=== PATIENT | female | born 1995 | race Caucasian/White ===

== ENCOUNTER 2017-04-15 10:40 | Emergency (ER) | payer BC ==
--- NOTE | 2017-04-15 11:08 | EDM.PDOC ---
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 Patient has her first OB check tomorrow. Yesterday the patient developed some vaginal spotting this has become progressively worse she is gone through 4 pads in the last 7 hours. She has also noticed some frequency with urination or she has to void about every hour she's not had any burning or dribbling with this. She has passed some clots. She has not had significant pain or cramping with this. Lower Pelvic Pain Score (Numeric/FACES): 4 ED ROS GENERAL - Review of Systems Review Of Systems: See Below Constitutional: Reports: No Symptoms HEENT: Reports: No Symptoms Respiratory: Reports: No Symptoms Cardiovascular: Reports: No Symptoms GI/Abdominal: Reports: Other (Lower abdominal pelvic pain). Denies: Constipation, Diarrhea, Nausea, Vomiting : Reports: Frequency. Denies: Dysuria, Flank Pain, Urgency Musculoskeletal: Reports: No Symptoms Skin: Reports: No Symptoms Neurological: Reports: No Symptoms ED EXAM - Physical Exam Exam: See Below Exam Limited By: No Limitations General Appearance: Alert, No Apparent Distress Head: Atraumatic, Normocephalic Neck: Normal Inspection, Supple, Non-Tender, Full Range of Motion Respiratory/Chest: No Respiratory Distress, Lungs Clear, Normal Breath Sounds Cardiovascular: Regular Rate, Rhythm, No Edema, No Murmur GI/Abdominal Exam: Normal Bowel Sounds, Soft, No Organomegaly, No Distention, No Abnormal Bruit, No Mass, Other ( heart tones not audible she has some lower abdominal discomfort seems to be slightly worse on the right compared to the left) (Female) Exam: Normal Bimanual Exam, Other (She has a small amount of blood noted in the vaginal vault no tissue or clots noted exam otherwise normal). No : Adnexal Mass (L), Adnexal Mass (R), Cervical Lesions, Cervix Motion Tenderness Heart Tones: Not [place] Back Exam: Normal Inspection. No: CVA Tenderness (L), CVA Tenderness (R) Extremities: Normal Inspection, No Pedal Edema Neurological: Alert, Oriented, CN II-XII Intact, Normal Reflexes, No Motor/ Sensory Deficits Psychiatric: Normal Affect, Normal Mood Skin Exam: Warm, Dry, Intact Lymphatic: No Adenopathy Course - Vital Signs Last Recorded V/S: Last Vital Signs Temp 36.4 C 04/15/17 11:03 Pulse 86 04/15/17 11:03 Resp 20 04/15/17 11:03 BP 136/81 04/15/17 11:03 Pulse Ox 99 04/15/17 11:03 - Orders/Labs/Meds Orders: Active Orders 24 hr Category Date Time Status Pelvic Exam, Set Up [RC] ASDIRECTED Care 04/15/17 13:47 Active OB Transvaginal [US] Stat Exams 04/15/17 11:29 Taken PATIENT RETYPE [BBK] Stat Lab 04/15/17 11:30 Results RH IMMUNE GLOBULIN [BBK] Stat Lab 04/15/17 11:30 Results RHIG WORKUP, 1ST TRIMESTER [BBK] Stat Lab 04/15/17 11:30 Results TYPE AND SCREEN [BBK] Stat Lab 04/15/17 11:30 Results Labs: Laboratory Tests 04/15/17 04/15/17 04/15/17 Range/Units 11:30 11:30 11:30 WBC 8.15 (3.98-10.04) K/mm3 RBC 5.32 H (3.98-5.22) M/mm3 Hgb 16.3 H (11.2-15.7) gm/L Hct 45.4 H (34.1-44.9) % MCV 85.3 (79.4-94.8) fl MCH 30.6 (25.6-32.2) pg MCHC 35.9 H (32.2-35.5) g/dl RDW Std Deviation 38.5 (36.4-46.3) fL Plt Count 274 (182-369) K/mm3 MPV 9.3 L (9.4-12.3) fl Neutrophils % (Manual) 72 H (40-60) % Band Neutrophils % 0 (0-10) % Lymphocytes % (Manual) 19 L (20-40) % Atypical Lymphs % 0 % Monocytes % (Manual) 8 (2-10) % Eosinophils % (Manual) 1 (0.7-5.8) % Basophils % (Manual) 0 L (0.1-1.2) Platelet Estimate Adequate RBC Morph Comment Normal PT 10.3 (8.0-13.0) SECONDS INR 0.96 APTT 29 (22-36) SECONDS Sodium 138 (136-145) mEq/L Potassium 3.2 L (3.5-5.1) mEq/L Chloride 100 (98-107) mEq/L Carbon Dioxide 26 (21-32) mEq/L Anion Gap 15.2 H (5-15) BUN 4 L (7-18) mg/dL Creatinine 0.7 (0.55-1.02) mg/dL Est Cr Clr Drug Dosing 111.51 mL/min Estimated GFR (MDRD) > 60 (>60) mL/min BUN/Creatinine Ratio 5.7 L (14-18) Glucose 91 (74-106) mg/dL Calcium 9.5 (8.5-10.1) mg/dL Total Bilirubin 0.8 (0.2-1.0) mg/dL AST 19 (15-37) U/L ALT 35 (14-59) U/L Alkaline Phosphatase 61 (46-116) U/L Total Protein 7.6 (6.4-8.2) g/dl Albumin 3.9 (3.4-5.0) g/dl Globulin 3.7 gm/dL Albumin/Globulin Ratio 1.1 (1-2) HCG, Quant 01619.0 mIU/mL Urine Color (Yellow) Urine Appearance (Clear) Urine pH (5.0-8.0) Ur Specific [place] (1.005-1.030) Urine Protein (Negative) Urine Glucose (UA) (Negative) Urine Ketones (Negative) Urine Occult Blood (Negative) Urine Nitrite (Negative) Urine Bilirubin (Negative) Urine Urobilinogen (0.2-1.0) Ur Leukocyte Esterase (Negative) Urine RBC (0-5) /hpf Urine WBC (0-5) /hpf Ur Epithelial Cells (0-5) /hpf Urine Bacteria (FEW) /hpf Urine Mucus (FEW) /hpf Blood Type Gel Antibody Screen Rhogam Indicated 04/15/17 04/15/17 Range/Units 11:30 12:25 WBC (3.98-10.04) K/mm3 RBC (3.98-5.22) M/mm3 Hgb (11.2-15.7) gm/L Hct (34.1-44.9) % MCV (79.4-94.8) fl MCH (25.6-32.2) pg MCHC (32.2-35.5) g/dl RDW Std Deviation (36.4-46.3) fL Plt Count (182-369) K/mm3 MPV (9.4-12.3) fl Neutrophils % (Manual) (40-60) % Band Neutrophils % (0-10) % Lymphocytes % (Manual) (20-40) % Atypical Lymphs % % Monocytes % (Manual) (2-10) % Eosinophils % (Manual) (0.7-5.8) % Basophils % (Manual) (0.1-1.2) Platelet Estimate RBC Morph Comment PT (8.0-13.0) SECONDS INR APTT (22-36) SECONDS Sodium (136-145) mEq/L Potassium (3.5-5.1) mEq/L Chloride (98-107) mEq/L Carbon Dioxide (21-32) mEq/L Anion Gap (5-15) BUN (7-18) mg/dL Creatinine (0.55-1.02) mg/dL Est Cr Clr Drug Dosing mL/min Estimated GFR (MDRD) (>60) mL/min BUN/Creatinine Ratio (14-18) Glucose (74-106) mg/dL Calcium (8.5-10.1) mg/dL Total Bilirubin (0.2-1.0) mg/dL AST (15-37) U/L ALT (14-59) U/L Alkaline Phosphatase (46-116) U/L Total Protein (6.4-8.2) g/dl Albumin (3.4-5.0) g/dl Globulin gm/dL Albumin/Globulin Ratio (1-2) HCG, Quant mIU/mL Urine Color Light yellow (Yellow) Urine Appearance Clear (Clear) Urine pH 7.0 (5.0-8.0) Ur Specific [place] 1.010 (1.005-1.030) Urine Protein Negative (Negative) Urine Glucose (UA) Negative (Negative) Urine Ketones Negative (Negative) Urine Occult Blood Negative (Negative) Urine Nitrite Negative (Negative) Urine Bilirubin Negative (Negative) Urine Urobilinogen 0.2 (0.2-1.0) Ur Leukocyte Esterase Negative (Negative) Urine RBC Not seen (0-5) /hpf Urine WBC Not seen (0-5) /hpf Ur Epithelial Cells Not seen (0-5) /hpf Urine Bacteria Not seen (FEW) /hpf Urine Mucus Not seen (FEW) /hpf Blood Type A NEGATIVE Gel Antibody Screen Negative Rhogam Indicated Yes Meds: Medications Discontinued Medications Generic Name Dose Route Start Last Admin Trade Name Fremegan PRN Reason Stop Dose Admin Lactated Ringer's 1,000 mls @ 999 mls/hr 04/15/17 11:28 04/15/17 11:43 Ringers, Lactated IV 04/15/17 12:28 999 mls/hr .BOLUS ONE Administration - Re-Assessments/Exams Free Text/Narrative Re-Assessment/Exam: 04/15/17 14:54 Quantitative hCG is 12,000 urinalysis was not suggestive of infectious process. Ultrasound was a obtained which really showed no intrauterine given her that and her 12,000 quantitative hCG this probably represents a miscarriage however cannot exclude other possibilities in this needs to be followed until the hCG is normal. She should probably have an repeat ultrasound done in a couple of weeks. Patient is Rh- and will receive RhoGAM. Case reviewed with Dr. Ocampo. 04/15/17 14:58 Patient is doing okay at this point she does not feel she needs any pain medication or anything for nausea. 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 Follow-up in the clinic tomorrow as previously scheduled. Continue vitamins. - My Orders Last 24 Hours: My Active Orders 04/15/17 11:29 OB Transvaginal [US] Stat 04/15/17 11:30 PATIENT RETYPE [BBK] Stat RH IMMUNE GLOBULIN [BBK] Stat RHIG WORKUP, 1ST TRIMESTER [BBK] Stat TYPE AND SCREEN [BBK] Stat 04/15/17 13:47 Pelvic Exam, Set Up [RC] ASDIRECTED - Assessment/Plan Last 24 Hours: My Active Orders 04/15/17 11:29 OB Transvaginal [US] Stat 04/15/17 11:30 PATIENT RETYPE [BBK] Stat RH IMMUNE GLOBULIN [BBK] Stat RHIG WORKUP, 1ST TRIMESTER [BBK] Stat TYPE AND SCREEN [BBK] Stat 04/15/17 13:47 Pelvic Exam, Set Up [RC] ASDIRECTED
[2017-04-15] MEDS ORDERED: Lactated Ringers 1,000 ML IV ONE (11:28)
--- NOTE | 2017-04-16 08:10 | US ---
First trimester obstetrical ultrasound: Multiple real-time images were obtained transvaginally. No intrauterine gestational sac is seen. Endometrial thickness is increased 2.4 cm and appears inhomogeneous. Small nabothian cyst noted within the cervix. No adnexal abnormalities are appreciated. Impression: 1. No intrauterine gestational sac or adnexal abnormalities. 2. Inhomogeneous and thickened endometrium at 2.4 cm which may represent retained products of conception/blood from miscarriage. 3. Follow-up study could be considered to see if findings persist. Follow-up could be obtained between 1 and 2 weeks if patient's clinical status remains stable. Diagnostic code #3 I agree with preliminary report from [facility], finalized at 04/15/17, 2:16 PM Central Time
== END 2017-04-15 15:27 | disposition home or self-care (01) ==
LOC: SUPCPDRO 10:40 → JD.ED 10:40
DX: O03.4 Incomplete spontaneous abortion without complication (principal)
CPT/HCPCS: 36415; 76817; 80053; 81001; 84702; 85025; 85610; 85730; 86850; 86900; 86901; 96360; 99284; J2790; J7120; 99283

== ENCOUNTER 2018-06-07 10:37 | Emergency (ER) | payer BC ==
--- NOTE | 2018-06-07 11:47 | EDM.PDOC ---
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 The patient states that she notices pain earlier this morning. The patient states that she is roughly 6 weeks as per her last menstrual period roughly April 27 the . She notes that her and her are trying to become . She went to the clinic to find out on Sunday and they stated that her hCG level at that time was 5 and her progesterone level was at 7. The patient states that the pain is worst when she stands on her left leg. And is made better by relaxing and not having any pressure on her left leg. She would rate her pain at a 6-7 out of 10 when she is standing. She states this pain is a cramping type pain She does note that she has some mild urinary frequency and some slight dysuria, but does not have a history of any UTIs at this time. 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 She notes she has not had any bowel issues such as IBS, diverticulitis or other. She does note that she still has her appendix as well. She has not had any nausea/vomiting, but did have one episode of diarrhea this morning. She denies any vaginal bleeding at this time. Left Lower Abdomen Pain Score (Numeric/FACES): 5 - Related Data Allergies Allergy/AdvReac Type Severity Reaction Status Date / Time No Known Allergies Allergy Verified 06/07/18 10:47 Home Meds: Home Meds Vaginal Suppository Applicator 1 supp VAG DAILY 06/07/18 [History] Past Medical History - Past Health History Medical/Surgical History: Denies Medical/Surgical History - Past Surgical History Female Surgical History: Reports: Other (See Below) Other Female Surgeries/Procedures: vaginal delivery x 1 Social & Family History - Tobacco Use Smoking Status *Q: Current Every Day Smoker Years of Tobacco use: 6 Packs/Tins Daily: 0.5 - Caffeine Use Caffeine Use: Reports: Coffee - Recreational Drug Use Recreational Drug Use: No ED ROS GENERAL - Review of Systems Review Of Systems: See Below Constitutional: Denies: Fever, Chills HEENT: Reports: No Symptoms Respiratory: Reports: No Symptoms Cardiovascular: Reports: No Symptoms Endocrine: Reports: No Symptoms GI/Abdominal: Reports: Abdominal Pain (LLQ and suprapubic) : Reports: Dysuria, Frequency. Denies: Discharge Musculoskeletal: Reports: No Symptoms Skin: Reports: No Symptoms Neurological: Reports: No Symptoms Psychiatric: Reports: No Symptoms Hematologic/Lymphatic: Reports: No Symptoms Immunologic: Reports: No Symptoms ED EXAM, GI/ABD - Physical Exam Exam: See Below Exam Limited By: No Limitations General Appearance: Alert, WD/WN, No Apparent Distress Eyes: Bilateral: Normal Appearance Ears: Normal External Exam Nose: Normal Inspection Throat/Mouth: Normal Inspection Head: Atraumatic, Normocephalic Neck: Normal Inspection Respiratory/Chest: No Respiratory Distress, Lungs Clear, Normal Breath Sounds, No Accessory Muscle Use, Chest Non-Tender Cardiovascular: Normal Peripheral Pulses, Regular Rate, Rhythm, No Murmur GI/Abdominal Exam: Normal Bowel Sounds, Soft, No Distention, No Mass, Tender ( LLQ and suprapubic with deep palpation) Back Exam: Normal Inspection, Full Range of Motion Extremities: Normal Inspection, Normal Capillary Refill Neurological: Alert, Oriented, Normal Cognition, No Motor/Sensory Deficits Psychiatric: Normal Affect, Normal Mood Skin Exam: Warm, Dry, Intact, Normal Color, No Rash Course - Vital Signs Last Recorded V/S: Last Vital Signs Temp 98.2 F 06/07/18 10:44 Pulse 82 06/07/18 10:44 Resp 16 06/07/18 10:44 BP 122/77 06/07/18 10:44 Pulse Ox 100 06/07/18 10:44 - Orders/Labs/Meds Orders: Active Orders 24 hr Category Date Time Status RHOGAM, [RHIG WORKUP, ] [BBK] Stat Lab 06/07/18 13:09 Ordered TYPE AND SCREEN [BBK] Stat Lab 06/07/18 11:09 Ordered Labs: Laboratory Tests 06/07/18 06/07/18 06/07/18 Range/Units 11:29 11:29 11:29 WBC 6.70 (3.98-10.04) K/mm3 RBC 5.07 (3.98-5.22) M/mm3 Hgb 15.6 (11.2-15.7) gm/L Hct 44.1 (34.1-44.9) % MCV 87.0 (79.4-94.8) fl MCH 30.8 (25.6-32.2) pg MCHC 35.4 (32.2-35.5) g/dl RDW Std Deviation 39.0 (36.4-46.3) fL Plt Count 305 (182-369) K/mm3 MPV 9.4 (9.4-12.3) fl Neut % (Auto) 53.1 (34.0-71.1) % Lymph % (Auto) 39.6 (19.3-51.7) % [place] % (Auto) 6.7 (4.7-12.5) % Eos % (Auto) 0.6 L (0.7-5.8) Baso % (Auto) 0.0 L (0.1-1.2) % Neut # (Auto) 3.56 (1.56-6.13) K/mm3 Lymph # (Auto) 2.65 (1.18-3.74) K/mm3 [place] # (Auto) 0.45 H (0.24-0.36) K/mm3 Eos # (Auto) 0.04 (0.04-0.36) K/mm3 Baso # (Auto) 0.00 L (0.01-0.08) K/mm3 Sodium 139 (136-145) mEq/L Potassium 3.8 (3.5-5.1) mEq/L Chloride 103 (98-107) mEq/L Carbon Dioxide 25 (21-32) mEq/L Anion Gap 14.8 (5-15) BUN 6 L (7-18) mg/dL Creatinine 0.7 (0.55-1.02) mg/dL Est Cr Clr Drug Dosing 110.55 mL/min Estimated GFR (MDRD) > 60 (>60) mL/min BUN/Creatinine Ratio 8.6 L (14-18) Glucose 87 (74-106) mg/dL Calcium 9.6 (8.5-10.1) mg/dL Total Bilirubin 0.6 (0.2-1.0) mg/dL AST 13 L (15-37) U/L ALT 29 (14-59) U/L Alkaline Phosphatase 45 L (46-116) U/L C-Reactive Protein < 0.2 (<1.0) mg/dL Total Protein 7.3 (6.4-8.2) g/dl Albumin 4.0 (3.4-5.0) g/dl Globulin 3.3 gm/dL Albumin/Globulin Ratio 1.2 (1-2) HCG, Quant < 1.0 mIU/mL Urine Color (Yellow) Urine Appearance (Clear) Urine pH (5.0-8.0) Ur Specific [place] (1.005-1.030) Urine Protein (Negative) Urine Glucose (UA) (Negative) Urine Ketones (Negative) Urine Occult Blood (Negative) Urine Nitrite (Negative) Urine Bilirubin (Negative) Urine Urobilinogen (0.2-1.0) Ur Leukocyte Esterase (Negative) Urine RBC (0-5) /hpf Urine WBC (0-5) /hpf Ur Epithelial Cells (0-5) /hpf Urine Bacteria (FEW) /hpf Urine Mucus (FEW) /hpf Blood Type A NEGATIVE 06/07/18 Range/Units 12:30 WBC (3.98-10.04) K/mm3 RBC (3.98-5.22) M/mm3 Hgb (11.2-15.7) gm/L Hct (34.1-44.9) % MCV (79.4-94.8) fl MCH (25.6-32.2) pg MCHC (32.2-35.5) g/dl RDW Std Deviation (36.4-46.3) fL Plt Count (182-369) K/mm3 MPV (9.4-12.3) fl Neut % (Auto) (34.0-71.1) % Lymph % (Auto) (19.3-51.7) % [place] % (Auto) (4.7-12.5) % Eos % (Auto) (0.7-5.8) Baso % (Auto) (0.1-1.2) % Neut # (Auto) (1.56-6.13) K/mm3 Lymph # (Auto) (1.18-3.74) K/mm3 [place] # (Auto) (0.24-0.36) K/mm3 Eos # (Auto) (0.04-0.36) K/mm3 Baso # (Auto) (0.01-0.08) K/mm3 Sodium (136-145) mEq/L Potassium (3.5-5.1) mEq/L Chloride (98-107) mEq/L Carbon Dioxide (21-32) mEq/L Anion Gap (5-15) BUN (7-18) mg/dL Creatinine (0.55-1.02) mg/dL Est Cr Clr Drug Dosing mL/min Estimated GFR (MDRD) (>60) mL/min BUN/Creatinine Ratio (14-18) Glucose (74-106) mg/dL Calcium (8.5-10.1) mg/dL Total Bilirubin (0.2-1.0) mg/dL AST (15-37) U/L ALT (14-59) U/L Alkaline Phosphatase (46-116) U/L C-Reactive Protein (<1.0) mg/dL Total Protein (6.4-8.2) g/dl Albumin (3.4-5.0) g/dl Globulin gm/dL Albumin/Globulin Ratio (1-2) HCG, Quant mIU/mL Urine Color Yellow (Yellow) Urine Appearance Clear (Clear) Urine pH 7.0 (5.0-8.0) Ur Specific [place] 1.010 (1.005-1.030) Urine Protein Negative (Negative) Urine Glucose (UA) Negative (Negative) Urine Ketones Negative (Negative) Urine Occult Blood Negative (Negative) Urine Nitrite Negative (Negative) Urine Bilirubin Negative (Negative) Urine Urobilinogen 0.2 (0.2-1.0) Ur Leukocyte Esterase Trace H (Negative) Urine RBC Not seen (0-5) /hpf Urine WBC 0-5 (0-5) /hpf Ur Epithelial Cells 0-5 (0-5) /hpf Urine Bacteria Rare (FEW) /hpf Urine Mucus Not seen (FEW) /hpf Blood Type - Re-Assessments/Exams Free Text/Narrative Re-Assessment/Exam: 06/07/18 11:15 Patient presents to the ED for the evaluation of left lower quadrant pain. I have ordered a UA, quantitative hCG, CBC, CMP, CRP, type and screen, and OB transvaginal ultrasound for further evaluation of her symptoms. She is not having any bleeding so is less likely that she is having an at The . But with her history of miscarriages I want to make sure that the fetus is okay , she states that her hCG level was deemed critically low on Sunday for the progression of her . 06/07/18 13:01 Patient's ultrasound is done, and CBC and CMP are done at this time. Her ultrasound does not demonstrate any sign of an intrauterine gestational sac, which suggests that maybe she had a false positive on her urine test. Her hCG Quant was less than one today. CBC and CMP are within normal limits, she is found to be A- at this time, she will need to have RhoGAM administered. 06/07/18 13:05 Her UA is negative for any sort of bacterial infection at this time as well. We 'll recommend that she take some laxatives and do a bowel clean out at home to see if this doesn't provide her relief. Departure - Departure Time of Disposition: 13:11 Disposition: Home, Self-Care 01 Condition: Fair Clinical Impression: LLQ abdominal pain - Discharge Information *PRESCRIPTION DRUG MONITORING PROGRAM REVIEWED*: No *COPY OF PRESCRIPTION DRUG MONITORING REPORT IN PATIENT MICHAEL: No Instructions: Abdominal Pain, Adult, [id number] Referrals: PCP,None [Primary Care Provider] - Forms: ED Department Discharge Additional Instructions: You have been evaluated in the ED today for your left lower quadrant pain. Your workup in the ER today included a quantitative hCG, urinalysis, and routine lab work. Your routine lab work was within normal limits, you are not suffering from appendicitis, you do not have a UTI, and your hCG level was less than one at today's visit. It is likely that you had a false positive test. Your blood type is A-, you have been given a dose of Rhogam in the ER. Your pain may likely be due to increased stool in your colon, due to slight constipation, please take some MiraLAX, and increase your oral fluid intake and stay well-hydrated. Please return to the ED if your symptoms should change or worsen. - My Orders Last 24 Hours: My Active Orders 06/07/18 11:09 TYPE AND SCREEN [BBK] Stat 06/07/18 13:09 RHOGAM, [RHIG WORKUP, ] [BBK] Stat - Assessment/Plan Last 24 Hours: My Active Orders 06/07/18 11:09 TYPE AND SCREEN [BBK] Stat 06/07/18 13:09 RHOGAM, [RHIG WORKUP, ] [BBK] Stat
--- NOTE | 2018-06-07 12:44 | US ---
First trimester obstetrical ultrasound: Multiple real-time images were obtained. Comparison: Previous first trimester obstetrical ultrasound of 04/15/17. No intrauterine gestational sac is seen. Endometrial thickness is 1.7 cm. Incidental nabothian cyst is present. Follicles are seen within the ovaries. No adnexal abnormalities are seen. Impression: 1. No intrauterine gestational sac or adnexal abnormalities are seen. 2. Endometrial thickness is 1.7 cm which is within normal limits. 3. Incidental nabothian cyst. Diagnostic code #2
== END 2018-06-07 14:07 | disposition home or self-care (01) ==
LOC: JD.ED 10:37
DX: R10.32 Left lower quadrant pain (principal); F17.210 Nicotine dependence, cigarettes, uncomplicated
CPT/HCPCS: 36415; 76817; 80053; 81001; 84702; 85025; 86140; 86850; 86900; 86901; 99284; J2790; 36430

== ENCOUNTER 2019-08-05 06:51 | Inpatient (IN) | payer BC ==
[2019-08-05] MEDS ORDERED: Sodium Chloride 0.9% 10 ML Syringe FLUSH PRN (07:42)
[2019-08-05] MEDS ORDERED: Oxytocin/Lactated Ringers 10 UNIT/1,000 ML BAG IV SCH ×2 (07:45)
[2019-08-05] MEDS: Nalbuphine 10 MG/ML Syringe IVPUSH PRN ×4 (08:15→17:37)
--- NOTE | 2019-08-05 08:21 | US ---
Addendum: Body of the report states "normal heart rate is seen" which is a voice recognition error and should read as follows: No heart activity is seen. --- Addendum1 above dictated on [08/05/2019 08:43] by [Suyapa Ambrose Hilton J.] --- --- Addendum1 above signed on [08/05/2019 08:45] by [Suyapa Ambrose Hilton J.] --- --- Original report below dictated on [08/05/2019 08:17] by [Suyapa Ambrose Hilton J.] --- --- Original report below signed on [08/05/2019 08:19] by [Suyapa Ambrose Hilton J.] --- Limited obstetrical ultrasound: Multiple real-time images were obtained transabdominally. Comparison: Prior obstetrical ultrasound of 08/04/19. Large heterogeneous area is seen in a retroplacental location believed to represent hematoma from placental abruption. presentation: Cephalic Placenta: Posterior Amniotic fluid: SUKUMAR 7.1 cm Heart rate: Normal heart rate is seen. Impression: 1. Large retroplacental hematoma from abruption. This is an interval change from previous exam performed one day earlier. 2. No heart activity is seen compatible with unfortunate demise. Diagnostic code #5 This report was dictated in MDT --- Addendum1 signed ---
[2019-08-05] MEDS: Lactated Ringers 1,000 ML IV SCH ×2 (09:30→10:35)
[2019-08-05] MEDS ORDERED: fentaNYL 100 MCG/2 ML SDV EPIDUR PRN (10:14)
[2019-08-05] MEDS ORDERED: diphenhydrAMINE 50 MG/ML SDV IVPUSH PRN (10:14)
[2019-08-05] MEDS ORDERED: Bupivacaine/fentaNYL/NS 100 ML Bag EPIDUR PRN (10:14)
[2019-08-05] MEDS ORDERED: ePHEDrine 50 MG/ML SDV IVPUSH PRN (10:14)
--- NOTE | 2019-08-05 11:05 | PCM.LDHP ---
L&D History of Present Illness - General Date of Service: 08/05/19 Admit Problem/Dx: Patient Status Order with Admit Dx/Problem 08/05/19 07:01 Patient Status [ADT] Routine Admission Diagnosis/Problem Admission Diagnosis/Problem 08/05/19 10:47 24-year-old 5 para 1031 at 36-0/7 weeks gestation with an CHANA of 09/01/2019 was admitted to labor and delivery with a history of rapid onset of vaginal bleeding, contractions confirmed with ultrasound to have a nonviable secondary to a suspected abruption placenta. Source of Information: Patient History Limitations: Reports: No Limitations - History of Present Illness Introduction:: 24-year-old 5 para 1031 at 36-0/7 weeks gestation with an CHANA of 09/01/2019 was admitted to labor and delivery with a history of rapid onset of vaginal bleeding, contractions confirmed with ultrasound to have a nonviable secondary to a suspected abruption placenta.Patient reports this a.m. at approximately 6 to 6:30 she awoke with cramping and bleeding. She soaked a pad with bright red blood. She was cramping severely and called labor and delivery and was asked to come into labor and delivery. At approximately 0700 hrs. I was called to labor and delivery as nursing staff was unable to obtain heart tones. Bedside ultrasound was done and showed no evidence of active cardiac activity. Confirmatory ultrasound was obtained. A large heterogeneous area is seen in the retroplacental location believed to represent hematoma from placental abruption. Patient is in moderate to severe pain radiating it on a 710/10. Bleeding is moderate and patient soaked possibly 1 more pad since arriving in labor and delivery. Patient had been seen over the course of the last 2 weeks with borderline elevated blood pressures. These started approximately 35 weeks' gestation. Patient was monitored in labor and delivery and blood pressures normalized. She had preeclampsia labs that were obtained and were essentially normal. Patient w as followed closely and reevaluated on 07/31/2019 in clinic at which time her blood pressures were 152/103 and 150/99. She is followed up on 08/04/2019 at which time her blood pressures and 40/82. Biophysical profile showed a score of 8/8 with normal amniotic fluid, breathing movements, tone and activity. NST was not performed. She had no symptoms or signs of preeclampsia at that time. Because it appeared that patient was developing gestational hypertension decision was made to proceed with induction to be done at 37 weeks and 0 days. This was scheduled. 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 Patient had normal menarche at age 10. Cycles every 28 days. She was using control time of conception. Her due date is based upon an early ultrasound done at 6-1/7 weeks gestational age. It was confirmed by multiple ultrasounds done during the course of the . Patient has had 3 miscarriages in August 2018, June 2018 in February 2018 all between 6 and 9 weeks gestation. She's had one delivery on 10/06/2011 at 39 weeks gestational age after 40 hours of labor. She delivered an 8 lbs. 1 oz. female infant via . She had epidural at that delivery. Child's name is Oksana. She delivered at [facility]. course: Patient was initially seen very early in the first trimester. Ultrasound as described above. Personal visit was at 10-3/7 weeks gestational age. Patient was seen on a regular basis. Her weight gain was from 183 pounds up to 228 pounds for approximately a 45 pound weight gain. Vital signs were stable until approximately 35 weeks' gestation. Fundal height growth was appropriate throughout the . Patient isn't every day smoker. Her group B strep screen is negative. She was diagnosed with gestational diabetes. She is contr olled reasonably well with glyburide 5 mg one half tablet each morning and 1 tablet at bedtime. Her prequel noninvasive screen was negative. Patient is Rh- and had RhoGAM on 05/28/2019. She received her Tdap immunization on 07/01/2019. Laboratory testing in shows blood to the A- with a negative MRI screen. First hemoglobin is 14.4 g/dL and platelets are 327,000. She is rubella immune. RPR is nonreactive. Urine culture was negative at first visit. Hepatitis B surface antigen and HIV assays were both negative. Chlamydia and gonorrhea were assays were both negative. Her second trimester labs showed hemoglobin 12.8 g/dL and platelets are 347,000. One-hour glucose tolerance test is 172. Three-hour glucose tolerance test was abnormal and patient was given diagnosis of gestational diabetes. She initially was evaluated with dietary control only but glyburide was started because of mildly elevated fasting blood sugars. Blood sugars were reasonably well controlled with glyburide therapy. Hemoglobin on 07/30/2019 was 13.3 and platelets are 306,000. At that time patient had essentially normal preeclampsia labs. B strep screen was negative. Allergies: Negative Medications: 1. Glyburide 5 mg tablets one half tablet each morning and 1 tablet at bedtime daily 2. vitamins daily 3. Ferrous sulfate 1 tablet orally daily. Past medical history: 1. Miscarriage 3 first trimester 2. 2011 3. Gestational hypertension 4. Gestational diabetes Past surgical history: Unremarkable Family history: Mother is alive and well. Father is secondary to liver failure, was an alcoholic and diabetic. Brother is alive but suffers from obesity. Sisters alive but has a history of drug use. Maternal grandmother is alive but with factor V Leiden mutation. Maternal grandfather is alive but is diabetic. Paternal grandmother is alive and well. Paternal grandfather is alive but diabetic. There is no family history of cancer, anesthesia related issues or -related issues. There are no bleeding or blood clotting disorders other than the maternal grandmother's factor V history. She does have a maternal aunt with Nichole syndrome. Social history: Patient is . She is not employed. She lives in [facility] with her Delfin. She is a high school graduate. She does not report any usage of drugs or alcohol during the but she does smoke approximately 8-10 cigarettes per day. Review of systems: In general patient is in moderate to severe discomfort secondary to uterine cramps. She is anxious and upset about the findings of nonviable baby. Skin: Negative Lungs: No infectious symptoms or shortness of breath Cardiovascular: No chest pain or exercise intolerance Breasts: Negative GI: Negative : See history of present illness. Musculoskeletal: Negative Neurological: Negative In general the patient is well-developed, well-nourished, pleasant female of stated age in no acute distress. Blood pressure on last evaluation in clinic on 08/04/2019 was 140/82, weight was 228.4. heart rate is 167 BPM. On evaluation in labor and delivery patient's blood pressure was mildly elevated. Skin is warm dry without lesions. HEENT, neck and back within normal limits. Lungs are clear with good breath sounds in all lung pascual. Cardiovascular exam shows regular and rhythm without murmurs. Abdomen is gravid with fundal height consistent with dates. Last evaluation yesterday in clinic her fundal height was 7 cm. Baby in vertex presentation by Juan C maneuvers and by ultrasound. No cardiac activity is noted with Doppler or with bedside ultrasound and this is confirmed with a formal radiology ultrasound evaluation. Genital exam for digital evaluation shows cervix to be 1-2 cm, 70% effaced, firm, cephalic presentation, blood present in the vaginal vault in small amount. Extremities and neurological exam are grossly within normal limits. 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 History: Reports: , Spontaneous - Past Surgical History Female Surgical History: Reports: Other (See Below) Other Female Surgeries/Procedures: vaginal delivery x 1 Social & Family History - Family History Family Medical History: Noncontributory - Caffeine Use Caffeine Use: Reports: Coffee H&P Review of Systems - Review of Systems: Review Of Systems: See Below L&D Exam - Exam Exam: See Below - Vital Signs Vital Signs: Last Vital Signs Temp 36.4 C 08/05/19 07:10 Pulse 100 08/05/19 07:10 Resp 18 08/05/19 07:10 BP 160/105 H 08/05/19 07:10 Pulse Ox 98 08/05/19 07:10 Weight: 104.054 kg - Patient Data Lab Results Last 24 hrs: Laboratory Results - last 24 hr 08/05/19 08/05/19 08/05/19 Range/Units 07:30 08:02 08:02 WBC (3.98-10.04) K/mm3 RBC (3.98-5.22) M/mm3 Hgb (11.2-15.7) gm/dl Hct (34.1-44.9) % MCV (79.4-94.8) fl MCH (25.6-32.2) pg MCHC (32.2-35.5) g/dl RDW Std Deviation (36.4-46.3) fL Plt Count (182-369) K/mm3 MPV (9.4-12.3) fl Neut % (Auto) (34.0-71.1) % Lymph % (Auto) (19.3-51.7) % Davis % (Auto) (4.7-12.5) % Eos % (Auto) (0.7-5.8) Baso % (Auto) (0.1-1.2) % Neut # (Auto) (1.56-6.13) K/mm3 Lymph # (Auto) (1.18-3.74) K/mm3 Davis # (Auto) (0.24-0.36) K/mm3 Eos # (Auto) (0.04-0.36) K/mm3 Baso # (Auto) (0.01-0.08) K/mm3 Manual Slide Review PT 15.6 H D (9.7-12.0) SECONDS INR 1.46 APTT 30 D (22-31) SECONDS Fibrinogen < 50 L* (187-446) mg/dL Fibrin Degrad Products > 20 ug/ml H (<5) ug/mL BUN (7-18) mg/dL Creatinine (0.55-1.02) mg/dL Est Cr Clr Drug Dosing mL/min Estimated GFR (MDRD) (>60) mL/min Uric Acid (2.6-6.0) mg/dL AST (15-37) U/L ALT (14-59) U/L Lactate Dehydrogenase (81-234) U/L SARS Virus RNA (PCR) Negative (NEGATIVE) Blood Type A NEGATIVE Gel Antibody Screen Negative 08/05/19 08/05/19 Range/Units 08:02 08:02 WBC 25.50 H (3.98-10.04) K/mm3 RBC 4.40 (3.98-5.22) M/mm3 Hgb 13.4 (11.2-15.7) gm/dl Hct 38.7 (34.1-44.9) % MCV 88.0 (79.4-94.8) fl MCH 30.5 (25.6-32.2) pg MCHC 34.6 (32.2-35.5) g/dl RDW Std Deviation 43.4 (36.4-46.3) fL Plt Count 195 D (182-369) K/mm3 MPV 9.1 L (9.4-12.3) fl Neut % (Auto) 86.1 H (34.0-71.1) % Lymph % (Auto) 6.9 L (19.3-51.7) % Davis % (Auto) 6.4 (4.7-12.5) % Eos % (Auto) 0.1 L (0.7-5.8) Baso % (Auto) 0.1 (0.1-1.2) % Neut # (Auto) 21.95 H (1.56-6.13) K/mm3 Lymph # (Auto) 1.75 (1.18-3.74) K/mm3 Davis # (Auto) 1.63 H (0.24-0.36) K/mm3 Eos # (Auto) 0.03 L (0.04-0.36) K/mm3 Baso # (Auto) 0.03 (0.01-0.08) K/mm3 Manual Slide Review Abnormal smear PT (9.7-12.0) SECONDS INR APTT (22-31) SECONDS Fibrinogen (187-446) mg/dL Fibrin Degrad Products (<5) ug/mL BUN 8 (7-18) mg/dL Creatinine 0.7 (0.55-1.02) mg/dL Est Cr Clr Drug Dosing 109.59 mL/min Estimated GFR (MDRD) > 60 (>60) mL/min Uric Acid 3.4 (2.6-6.0) mg/dL AST 37 (15-37) U/L ALT 24 (14-59) U/L Lactate Dehydrogenase 463 H (81-234) U/L SARS Virus RNA (PCR) (NEGATIVE) Blood Type Gel Antibody Screen Result Diagrams: 08/05/19 08:02 08/05/19 08:02 Problem List Initiated/Reviewed/Updated: Yes Orders Last 24hrs: Active Orders 24 hr Category Date Time Status Patient Status [ADT] Routine ADT 08/05/19 07:01 Active Activity as Tolerated [RC] PFP Care 08/05/19 07:43 Active Communication Order [RC] ASDIRECTED Care 08/05/19 07:43 Active Communication Order [RC] ASDIRECTED Care 08/05/19 10:15 Active Cooling Warming Measures [RC] ASDIRECTED Care 08/05/19 10:15 Active Heart Tones [RC] ASDIRECTED Care 08/05/19 07:45 Active Notify Provider [RC] ASDIRECTED Care 08/05/19 10:14 Active Notify Provider [RC] ASDIRECTED Care 08/05/19 10:15 Active Notify Provider [RC] PFP Care 08/05/19 07:43 Active Notify Provider [RC] PRN Care 08/05/19 07:43 Active Oxygen Therapy [RC] ASDIRECTED Care 08/05/19 10:15 Active Peripheral IV Care [RC] . DIRECTED Care 08/05/19 07:45 Active Pulse Oximetry [RC] ASDIRECTED Care 08/05/19 10:15 Active Vital Signs [RC] PER UNIT ROUTINE Care 08/05/19 07:01 Active Vital Signs [RC] Q1H Care 08/05/19 10:15 Active Nothing Per Oral Diet [DIET] Diet 08/05/19 Breakfast Active RAPID PLASMA REAGIN,RPR [CHEM] Routine Lab 08/05/19 08:02 Received Bupivacaine/fentaNYL/NS [fentaNYL/Bupivacaine/NS 2 MCG- Med 08/05/19 10:14 Active 0.125% 100 ML] 100 ml EPIDUR ASDIRECTED PRN Lactated Ringers [Ringers, Lactated] 1,000 ml Med 08/05/19 07:45 Active IV ASDIRECTED Nalbuphine [Nubain] Med 08/05/19 07:42 Active 10 mg IVPUSH Q2H PRN Oxytocin/Lactated Ringers [Pitocin in LR 10 Units/1,000 Med 08/05/19 07:45 Active ML] 10 unit in 1,000 ml IV .CONTINUOUS Oxytocin/Lactated Ringers [Pitocin in LR 10 Units/1,000 Med 08/05/19 07:45 Active ML] 10 unit in 1,000 ml IV TITRATE Sodium Chloride 0.9% [Saline Flush] Med 08/05/19 07:42 Active 10 ml FLUSH ASDIRECTED PRN diphenhydrAMINE [Benadryl] Med 08/05/19 10:14 Active 25 mg IVPUSH Q6H PRN ePHEDrine [ePHEDrine sulfate] Med 08/05/19 10:14 Active 5 mg IVPUSH ASDIRECTED PRN fentaNYL [Sublimaze] Med 08/05/19 10:14 Active 100 mcg EPIDUR Q3H PRN Electronic Heart Tones Ext w TOCO [WOMSER] Oth 08/05/19 07:43 Ordered Routine Electronic Heart Tones Internal [WOMSER] Per Unit Oth 08/05/19 07:43 Ordered Routine PIH Panel [OM.PC] Stat Oth 08/05/19 07:42 Ordered Peripheral IV Insertion Adult [OM.PC] Routine Ot 08/05/19 07:43 Ordered Resuscitation Status Routine Resus Stat 08/05/19 07:01 Ordered Medication Orders Diphenhydramine HCl (Benadryl) 25 mg IVPUSH Q6H PRN PRN Reason: pruritis Ephedrine Sulfate (Ephedrine Sulfate) 5 mg IVPUSH ASDIRECTED PRN PRN Reason: Hypotension Fentanyl (Sublimaze) 100 mcg EPIDUR Q3H PRN PRN Reason: Pain Fentanyl/Bupivacaine HCl (Fentanyl/Bupivacaine/Ns 2 Mcg-0.125% 100 Ml) 100 ml EPIDUR ASDIRECTED PRN PRN Reason: Pain Lactated Ringer's (Ringers, Lactated) 1,000 mls @ 100 mls/hr IV ASDIRECTED NANETTE Last Admin: 08/05/19 10:35 Dose: 100 mls/hr Documented by: Infusion: 08/05/19 10:35 Dose: 100 mls/hr Documented by: Admin: 08/05/19 09:30 Dose: 100 mls/hr Documented by: DEAN Oxytocin/Lactated Ringer's (Pitocin In Lr 10 Units/1,000 Ml) 10 unit in 1,000 mls @ 12 mls/hr IV TITRATE NANETTE; Protocol Oxytocin/Lactated Ringer's (Pitocin In Lr 10 Units/1,000 Ml) 10 unit in 1,000 mls @ 100 mls/hr IV .CONTINUOUS NANETTE Nalbuphine HCl (Nubain) 10 mg IVPUSH Q2H PRN PRN Reason: Pain Last Admin: 08/05/19 08:15 Dose: 10 mg Documented by: DEAN Sodium Chloride (Saline Flush) 10 ml FLUSH ASDIRECTED PRN PRN Reason: Keep Vein Open Assessment/Plan Comment:: 1. 36-1/7 week intrauterine , demise with ultrasound evidence of abruption of placenta as suspected cause of demise. 2. Risk factors for the include history of gestational hypertension, history of smoking, increased weight gain during the , history of miscarriages 3. 3. Moderate pain secondary to uterine contractions. 4. Group B strep screen is negative 5. She desires an epidural in labor. 6. Laboratory testing shows fibrinogen which is low at less than 50. Fibrin degradation products are increased at greater than 20. INR is normal at 1.46. PT is elevated at 15.6. Plan: 1. Obtain preeclampsia labs including PT, PTT, INR, fibrinogen, fibrin degradation products. Results as above. 2. Epidural if possible as based upon her laboratory tests 3. Urinalysis along with the urine drug screen. 4. Will proceed with cryoprecipitate 1 unit IV and recheck fibrinogen and FDP, CBC, PTT. Will ensure that blood bank has fresh frozen plasma but we'll wait with ordering. Type and crossmatch 2 units of packed red blood cells. We'll continue to monitor coagulation studies every 4 hours. 5. Induction of labor with Pitocin. 6. Monitor bleeding closely 7. Will consider epidural if coagulation factors and platelets remained normal. Use Nubain until that point.
[2019-08-05] MEDS ORDERED: Sodium Chloride 0.9% 1,000 ML IV ONE ×2 (12:25→22:10)
[2019-08-05] MEDS ORDERED: Sodium Chloride 0.9% 250 ML IV SCH ×2 (12:30→18:00)
[2019-08-05] MEDS ORDERED: Methylergonovine 0.2 MG/1 ML Amp IM PRN (17:48)
[2019-08-05] MEDS ORDERED: Oxytocin/Lactated Ringers 20 UNIT/1,000 ML BAG IV SCH (18:00)
[2019-08-05] MEDS ORDERED: Misoprostol 200 MCG Tab PO ONE (18:00)
--- NOTE | 2019-08-05 18:58 | PCM.SN.2 ---
- Free Text/Narrative Note: Delivery note: 24-year-old 5 para 1031 at 36-0/7 weeks gestation with an CHANA of 09/01/2019 was admitted to labor and delivery with a history of rapid onset of vaginal bleeding, contractions confirmed with ultrasound to have a nonviable secondary to a suspected abruption placenta.Patient reports this a.m. at approximately 6 to 6:30 she awoke with cramping and bleeding. She soaked a pad with bright red blood. She was cramping severely and called labor and delivery and was asked to come into labor and delivery. At approximately 0700 hrs. I was called to labor and delivery as nursing staff was unable to obtain heart tones. Bedside ultrasound was done and showed no evidence of active cardiac activity. Confirmatory ultrasound was obtained. A large heterogeneous area is seen in the retroplacental location believed to represent hematoma from placental abruption. Patient is in moderate to severe pain radiating it on a 710/10. Bleeding was moderate and patient soaked possibly 1 more pad the first 2 hours since arriving in labor and delivery. The patient underwent evaluation and was found to have laboratory testing which was abnormal consistent of DVT which is elevated, fibrinogen which was decreased and fibrin degradation products which were increased. Her platelet count was 1 95,000. Her hemoglobin was normal as was her adequate. Patient underwent induction of labor. She had Nubain for pain control. Because of the decreased fibrinogen patient was given initially 2 units of fresh frozen plasma as cryoprecipitate was ordered from [facility] in [place]. She was noted to be 4 cm at approximately 1700 hrs., 100% effaced, 0 station. She progressed rapidly after that evaluation. She felt pressure to push and with 1 contraction and delivered the baby over an intact perineum. The baby was female. Apgars were 0 at 1 minute, 0 at 5 minutes and 0 at 10 minutes. No abnormalities were noted with the baby. The placenta immediately delivered after the baby delivered and 2 fist size clots were noted behind the placenta consistent with a complete placental abruption. Patient was administered Pitocin IV at 500 mL per hour. She also see 600 g of Cytotec buccally. With this bleeding significantly decreased to minimal. Patient's discomfort when we. Her vital signs normalized. The baby delivered quickly, perineum was intact and no suturing was required. Placenta appeared intact and normal exception of retroplacental clot presence. There was a three-vessel cord. The baby weighed grams, ( 5 pounds, 13 ounces), 19-1/2 inches in length. Baby was held by both dad and mom after delivery. They appear to be grieving appropriately. Bleeding was managed reasonably well after delivery and patient tolerated this well.
[2019-08-05] MEDS ORDERED: Acetaminophen 325 MG Tab PO PRN (20:33)
[2019-08-05] MEDS ORDERED: Docusate Sodium 100 MG Cap PO PRN (20:33)
[2019-08-05] MEDS ORDERED: Ondansetron 4 MG/2 ML SDV IVPUSH PRN (20:35)
[2019-08-05] MEDS ORDERED: Sodium Chloride 0.9% 1,000 ML ONE (20:37)
--- NOTE | 2019-08-06 08:42 | PCM.SN.2 ---
- Free Text/Narrative Note: day #1 note: Patient is doing reasonably well. blood loss over the last 4 hours has been approximately 150 mL. Patient appears to be grieving appropriately. Patient is afebrile, blood pressure is still borderline elevated in the 140s to low 150s over 80s.urine output has been good. Abdomen is flat, soft, uterus is below the umbilicus and is firm and nontender. Legs are nontender.1+ pitting edema noted. Laboratory testing this and shows platelets that are low at just above 100,000. Her hemoglobin is 7.1. Fibrinogen is 339normal.CMP is relatively normal with the exception of changes. Assessment: 1. Post day #1 status post delivery of nonviable 36 week . demise secondary to complete abruption of placenta 2. Coagulation abnormalities slowly being corrected. Yesterday had decreased fibrinogen, PT was increased, platelets were decreased to 73,000 with what appeared to be somewhat of a consumptive quite a lot please secondary to the abruption. Patient has received 2 units of fresh frozen plasma, 2 units of cryoprecipitate, 1 unit of platelets and 2 units of packed red blood cells. She is still having some bleeding and with low hemoglobin and in this patient going home within the next 24-48 hours would recommend 2 more units of packed red b lood cells which may cause further hemodilution of the platelet count and fibrinogen. Plan: 1. Will transfuse 2 more units of packed red blood cells today. 2. Will continue with plan to give second unit of platelets because of anticipated hemodilution caused by the anticipated hemodilution caused by fluid rehydration, the additional 2 units of packed red blood cells. 3. We'll recheck CBC after platelets and packed red blood cells are infused. 4.increase activity, discontinue Robins catheter,regular diet. 5. We'll monitor for depression symptoms 6. Monitor blood pressure closely.
[2019-08-06] MEDS ORDERED: Nitrofurantoin Monohydrate/Macrocrystalline 100 MG Cap PO SCH (09:00)
[2019-08-06] MEDS ORDERED: Ibuprofen 600 MG Tab PO PRN (09:01)
[2019-08-06] MEDS ORDERED: Sodium Chloride 0.9% 250 ML IV SCH (12:15)
[2019-08-06 15:09] VITALS: BP 130/82
[2019-08-06 15:42] VITALS: PULSE 101
--- NOTE | 2019-08-06 16:33 | PCM.DCSUM1 ---
Discharge Summary - Hospital Course Free Text/Narrative:: 24-year-old 5 para 1031 at 36-0/7 weeks gestation with an CHANA of 09/01/2019 was admitted to labor and delivery with a history of rapid onset of vaginal bleeding, contractions confirmed with ultrasound to have a nonviable secondary to a suspected abruption placenta.Patient reports this a.m. at approximately 6 to 6:30 she awoke with cramping and bleeding. She soaked a pad with bright red blood. She was cramping severely and called labor and delivery and was asked to come into labor and delivery. At approximately 0700 hrs. I was called to labor and delivery as nursing staff was unable to obtain heart tones. Bedside ultrasound was done and showed no evidence of active cardiac activity. Confirmatory ultrasound was obtained. A large heterogeneous area is seen in the retroplacental location believed to represent hematoma from placental abruption. Patient is in moderate to severe pain radiating it on a 710/10. Bleeding was moderate and patient soaked possibly 1 more pad the first 2 hours since arriving in labor and delivery. The patient underwent evaluation and was found to have laboratory testing which was abnormal consistent of DVT which is elevated, fibrinogen which was decreased and fibrin degradation products which were increased. Her platelet count was 195,000. Her hemoglobin was normal as was her adequate. Patient underwent induction of labor. She had Nubain for pain control. Because of the decreased fibrinogen patient was given initially 2 units of fresh frozen plasma as cryoprecipitate was ordered from [facility] in [place]. She was noted to be 4 cm at approximately 1700 hrs., 100% effaced, 0 station. She progressed rapidly after that evaluation. She felt pressure to push and with 1 contraction and delivered the baby over an intact perineum. The baby was female. Apgars were 0 at 1 minute, 0 at 5 minutes and 0 at 10 minutes. No abnormalities were noted with the baby. The placenta immediately delivered after the baby delivered and 2 fist size clots were noted behind the placenta consistent with a complete placental abruption. Patient was administered Pitocin IV at 500 mL per hour. She also see 600 g of Cytotec buccally. With this bleeding significantly decreased to minimal. Patient's discomfort when we. Her vital signs normalized. The baby delivered quickly, perineum was intact and no suturing was required. Placenta appeared intact and normal exception of retroplacental clot presence. There was a three-vessel cord. The baby weighed grams, ( 5 pounds, 13 ounces), 19-1/2 inches in length. Baby was held by both dad and mom after delivery. They appear to be grieving appro priately. Bleeding was managed reasonably well after delivery and patient tolerated this well. patient's made slow but steady improvement. She is noted to have a hemoglobin which is low at 7.1. She was treated with 2 units of packed red blood cells in anticipation of going home. This increased her hemoglobin to 8.3. Patient's white blood count returned to normal. Platelet count increased to over 150,000 with a second unit of platelets infused. Her vital signs are stable although blood pressure was high normal to mildly elevated. It did not require medical therapy. Reflexes remained negligible. Output was good. Patient is ambulating well. He has minimal lochia. She is voiding without problems. She appears to be grieving well. She is desiring discharge home. Condition: Good. Diagnosis: Stroke: No - Discharge Data Discharge Date: 08/06/19 Discharge Disposition: Home, Self-Care 01 Condition: Good - Referral to Home Health Primary Care Physician: Cornelius Bell MD - Patient Instructions Diet: Regular Diet as Tolerated (I fiber diet) Activity: As Tolerated (No intercourse or tampons until seen back.) Driving: Do Not Drive Showering/Bathing: May Shower (May take a bath) Notify Provider of: Fever, Increased Pain, Swelling and Redness, Nausea and/or Vomiting - Discharge Plan Home Medications: Home Meds Pnv No.95/Ferrous Fum/Folic AC [ Tablet] 1 each PO DAILY 07/30/19 [History] glyBURIDE [Glyburide] 5 mg PO ASDIRECTED 07/30/19 [History] Ferrous Sulfate [Iron] 325 mg PO DAILY 08/05/19 [History] Acetaminophen [Tylenol] 650 mg PO Q4H PRN tablet 08/06/19 [Rx] Docusate Sodium [Colace] 100 mg PO BID PRN cap 08/06/19 [Rx] Ibuprofen [Motrin] 600 mg PO Q6H PRN tablet 08/06/19 [Rx] Nitrofurantoin Cobb/Macrocryst [Nitrofurantoin Cobb-MCR] 100 mg PO BID cap 08/06/19 [Rx] Patient Handouts: Steps to Quit Smoking Referrals: Cornelius Bell MD [Primary Care Provider] - (Return to [facility] week.) - Discharge Summary/Plan Comment DC Time >30 min.: No Discharge Summary/Plan Comment: Discharge instructions: 1. Discharge home 2. Diet, activity and follow-up discussed with patient. High fiber high iron diet. 3. Precautions given concern increased pain, bleeding, temperature, signs/symptoms of DVT/PE. 4. Medications per home medication was printed, discussed with and given to the patient. 5. Return to clinic-Dr. Bell[facility] in 1 week. Diagnosis: Nonviable at 36 weeks -delivered Condition: Good - Patient Data Vitals - Most Recent: Last Vital Signs Temp 36.7 C 08/06/19 15:10 Pulse 101 H 08/06/19 15:10 Resp 20 08/06/19 15:10 BP 130/82 08/06/19 15:10 Pulse Ox 95 08/06/19 15:10 Weight - Most Recent: 104.054 kg I&O - Last 24 hours: Intake & Output 08/06/19 08/06/19 08/06/19 06:59 14:59 22:59 Intake Total 3962 810 360 Output Total 2081 605 500 Balance 1877 205 -140 Lab Results - Last 24 hrs: Laboratory Results - last 24 hr 08/05/19 08/05/19 08/05/19 Range/Units 08:02 15:50 18:06 WBC 20.21 H (3.98-10.04) K/mm3 RBC 3.26 L (3.98-5.22) M/mm3 Hgb 9.8 L D (11.2-15.7) gm/dl Hct 29.1 L (34.1-44.9) % MCV 89.3 (79.4-94.8) fl MCH 30.1 (25.6-32.2) pg MCHC 33.7 (32.2-35.5) g/dl RDW Std Deviation 43.3 (36.4-46.3) fL Plt Count 93 L D (182-369) K/mm3 MPV 9.5 (9.4-12.3) fl Neut % (Auto) 86.5 H (34.0-71.1) % Lymph % (Auto) 5.7 L (19.3-51.7) % Cobb % (Auto) 7.3 (4.7-12.5) % Eos % (Auto) 0 L (0.7-5.8) Baso % (Auto) 0.1 (0.1-1.2) % Neut # (Auto) 17.46 H (1.56-6.13) K/mm3 Lymph # (Auto) 1.16 L (1.18-3.74) K/mm3 Cobb # (Auto) 1.48 H (0.24-0.36) K/mm3 Eos # (Auto) 0.01 L (0.04-0.36) K/mm3 Baso # (Auto) 0.02 (0.01-0.08) K/mm3 Manual Slide Review Abnormal smear PT (9.7-12.0) SECONDS INR APTT (22-31) SECONDS Fibrinogen 112 L* (187-446) mg/dL Sodium (136-145) mEq/L Potassium (3.5-5.1) mEq/L Chloride (98-107) mEq/L Carbon Dioxide (21-32) mEq/L Anion Gap (5-15) BUN (7-18) mg/dL Creatinine (0.55-1.02) mg/dL Est Cr Clr Drug Dosing Estimated GFR (MDRD) (>60) mL/min BUN/Creatinine Ratio (14-18) Glucose (74-106) mg/dL Calcium (8.5-10.1) mg/dL Total Bilirubin (0.2-1.0) mg/dL AST (15-37) U/L ALT (14-59) U/L Alkaline Phosphatase (46-116) U/L Total Protein (6.4-8.2) g/dl Albumin (3.4-5.0) g/dl Globulin gm/dL Albumin/Globulin Ratio (1-2) Blood Type A NEGATIVE Gel Antibody Screen Negative Screen RhIG Candidate? Rhogam Indicated Crossmatch See Detail 08/05/19 08/05/19 08/05/19 Range/Units 20:15 20:15 20:15 WBC 25.20 H (3.98-10.04) K/mm3 RBC 3.08 L (3.98-5.22) M/mm3 Hgb 8.9 L (11.2-15.7) gm/dl Hct 27.0 L (34.1-44.9) % MCV 87.7 (79.4-94.8) fl MCH 28.9 (25.6-32.2) pg MCHC 33.0 (32.2-35.5) g/dl RDW Std Deviation 43.7 (36.4-46.3) fL Plt Count 71 L (182-369) K/mm3 MPV 9.2 L (9.4-12.3) fl Neut % (Auto) 90.0 H (34.0-71.1) % Lymph % (Auto) 3.7 L (19.3-51.7) % Cobb % (Auto) 5.8 (4.7-12.5) % Eos % (Auto) 0 L (0.7-5.8) Baso % (Auto) 0.1 (0.1-1.2) % Neut # (Auto) 22.71 H (1.56-6.13) K/mm3 Lymph # (Auto) 0.93 L (1.18-3.74) K/mm3 Cobb # (Auto) 1.45 H (0.24-0.36) K/mm3 Eos # (Auto) 0.00 L (0.04-0.36) K/mm3 Baso # (Auto) 0.02 (0.01-0.08) K/mm3 Manual Slide Review Abnormal smear PT (9.7-12.0) SECONDS INR APTT 27 (22-31) SECONDS Fibrinogen 111 L* (187-446) mg/dL Sodium (136-145) mEq/L Potassium (3.5-5.1) mEq/L Chloride (98-107) mEq/L Carbon Dioxide (21-32) mEq/L Anion Gap (5-15) BUN (7-18) mg/dL Creatinine (0.55-1.02) mg/dL Est Cr Clr Drug Dosing Estimated GFR (MDRD) (>60) mL/min BUN/Creatinine Ratio (14-18) Glucose (74-106) mg/dL Calcium (8.5-10.1) mg/dL Total Bilirubin (0.2-1.0) mg/dL AST (15-37) U/L ALT (14-59) U/L Alkaline Phosphatase (46-116) U/L Total Protein (6.4-8.2) g/dl Albumin (3.4-5.0) g/dl Globulin gm/dL Albumin/Globulin Ratio (1-2) Blood Type A NEGATIVE Gel Antibody Screen Negative Screen 0 ros/5 flds - neg RhIG Candidate? Yes Rhogam Indicated Yes, baby rh unknown H Crossmatch See Detail 08/06/19 08/06/19 08/06/19 Range/Units 06:50 06:50 06:50 WBC 11.61 H (3.98-10.04) K/mm3 RBC 2.44 L (3.98-5.22) M/mm3 Hgb 7.1 L* D (11.2-15.7) gm/dl Hct 21.3 L (34.1-44.9) % MCV 87.3 (79.4-94.8) fl MCH 29.1 (25.6-32.2) pg MCHC 33.3 (32.2-35.5) g/dl RDW Std Deviation 43.0 (36.4-46.3) fL Plt Count 118 L (182-369) K/mm3 MPV 10.3 (9.4-12.3) fl Neut % (Auto) 75.9 H (34.0-71.1) % Lymph % (Auto) 14.3 L (19.3-51.7) % Cobb % (Auto) 9.2 (4.7-12.5) % Eos % (Auto) 0.3 L (0.7-5.8) Baso % (Auto) 0.0 L (0.1-1.2) % Neut # (Auto) 8.82 H (1.56-6.13) K/mm3 Lymph # (Auto) 1.66 (1.18-3.74) K/mm3 Cobb # (Auto) 1.07 H (0.24-0.36) K/mm3 Eos # (Auto) 0.03 L (0.04-0.36) K/mm3 Baso # (Auto) 0.00 L (0.01-0.08) K/mm3 Manual Slide Review Abnormal smear PT 10.0 (9.7-12.0) SECONDS INR < 0.93 APTT (22-31) SECONDS Fibrinogen 339 (187-446) mg/dL Sodium 140 (136-145) mEq/L Potassium 2.9 L (3.5-5.1) mEq/L Chloride 106 (98-107) mEq/L Carbon Dioxide 24 (21-32) mEq/L Anion Gap 12.9 (5-15) BUN 11 (7-18) mg/dL Creatinine 0.8 (0.55-1.02) mg/dL Est Cr Clr Drug Dosing TNP Estimated GFR (MDRD) > 60 (>60) mL/min BUN/Creatinine Ratio 13.8 L (14-18) Glucose 75 (74-106) mg/dL Calcium 7.7 L (8.5-10.1) mg/dL Total Bilirubin 0.7 (0.2-1.0) mg/dL AST 25 (15-37) U/L ALT 18 (14-59) U/L Alkaline Phosphatase 50 (46-116) U/L Total Protein 4.7 L (6.4-8.2) g/dl Albumin 1.8 L (3.4-5.0) g/dl Globulin 2.9 gm/dL Albumin/Globulin Ratio 0.6 L (1-2) Blood Type Gel Antibody Screen Screen RhIG Candidate? Rhogam Indicated Crossmatch 08/06/19 Range/Units 15:30 WBC 11.90 H (3.98-10.04) K/mm3 RBC 2.79 L (3.98-5.22) M/mm3 Hgb 8.1 L (11.2-15.7) gm/dl Hct 24.6 L (34.1-44.9) % MCV 88.2 (79.4-94.8) fl MCH 29.0 (25.6-32.2) pg MCHC 32.9 (32.2-35.5) g/dl RDW Std Deviation 43.9 (36.4-46.3) fL Plt Count 154 L (182-369) K/mm3 MPV 10.3 (9.4-12.3) fl Neut % (Auto) 74.1 H (34.0-71.1) % Lymph % (Auto) 16.3 L (19.3-51.7) % Cobb % (Auto) 8.8 (4.7-12.5) % Eos % (Auto) 0.3 L (0.7-5.8) Baso % (Auto) 0.1 (0.1-1.2) % Neut # (Auto) 8.82 H (1.56-6.13) K/mm3 Lymph # (Auto) 1.94 (1.18-3.74) K/mm3 Cobb # (Auto) 1.05 H (0.24-0.36) K/mm3 Eos # (Auto) 0.03 L (0.04-0.36) K/mm3 Baso # (Auto) 0.01 (0.01-0.08) K/mm3 Manual Slide Review PT (9.7-12.0) SECONDS INR APTT (22-31) SECONDS Fibrinogen (187-446) mg/dL Sodium (136-145) mEq/L Potassium (3.5-5.1) mEq/L Chloride (98-107) mEq/L Carbon Dioxide (21-32) mEq/L Anion Gap (5-15) BUN (7-18) mg/dL Creatinine (0.55-1.02) mg/dL Est Cr Clr Drug Dosing Estimated GFR (MDRD) (>60) mL/min BUN/Creatinine Ratio (14-18) Glucose (74-106) mg/dL Calcium (8.5-10.1) mg/dL Total Bilirubin (0.2-1.0) mg/dL AST (15-37) U/L ALT (14-59) U/L Alkaline Phosphatase (46-116) U/L Total Protein (6.4-8.2) g/dl Albumin (3.4-5.0) g/dl Globulin gm/dL Albumin/Globulin Ratio (1-2) Blood Type Gel Antibody Screen Screen RhIG Candidate? Rhogam Indicated Crossmatch Med Orders - Current: Current Medications Acetaminophen (Tylenol) 650 mg PO Q4H PRN PRN Reason: mild pain or fever Last Admin: 08/06/19 03:22 Dose: 650 mg Documented by: Docusate Sodium (Colace) 100 mg PO BID PRN PRN Reason: Constipation Sodium Chloride (Normal Saline) 250 mls @ 100 mls/hr IV ASDIRECTED NANETTE Ibuprofen (Motrin) 600 mg PO Q6H PRN PRN Reason: Pain Last Admin: 08/06/19 09:15 Dose: 600 mg Documented by: Nitrofurantoin Macrocrystals (Macrobid) 100 mg PO BID NANETTE Last Admin: 08/06/19 09:09 Dose: 100 mg Documented by: Ondansetron HCl (Zofran) 4 mg IVPUSH Q4HR PRN PRN Reason: Nausea/Vomiting Last Admin: 08/05/19 20:45 Dose: 4 mg Documented by: Discontinued Medications Diphenhydramine HCl (Benadryl) 25 mg IVPUSH Q6H PRN PRN Reason: pruritis Ephedrine Sulfate (Ephedrine Sulfate) 5 mg IVPUSH ASDIRECTED PRN PRN Reason: Hypotension Fentanyl (Sublimaze) 100 mcg EPIDUR Q3H PRN PRN Reason: Pain Fentanyl/Bupivacaine HCl (Fentanyl/Bupivacaine/Ns 2 Mcg-0.125% 100 Ml) 100 ml EPIDUR ASDIRECTED PRN PRN Reason: Pain Lactated Ringer's (Ringers, Lactated) 1,000 mls @ 100 mls/hr IV ASDIRECTED [facility] Last Admin: 08/05/19 10:35 Dose: 100 mls/hr Documented by: Oxytocin/Lactated Ringer's (Pitocin In Lr 10 Units/1,000 Ml) 10 unit in 1,000 mls @ 12 mls/hr IV TITRATE [facility]; Protocol Last Titration: 08/05/19 16:19 Dose: 10 munits/min, 60 mls/hr Documented by: Oxytocin/Lactated Ringer's (Pitocin In Lr 10 Units/1,000 Ml) 10 unit in 1,000 mls @ 100 mls/hr IV .CONTINUOUS [facility] Sodium Chloride (Normal Saline) 1,000 mls @ 999 mls/hr IV ONETIME ONE Stop: 08/05/19 13:25 Last Admin: 08/05/19 12:15 Dose: 999 mls/hr Documented by: Sodium Chloride (Normal Saline) 250 mls @ 100 mls/hr IV ASDIRECTED [facility] Last Admin: 08/05/19 13:00 Dose: 100 mls/hr Documented by: Oxytocin/Lactated Ringer's (Pitocin In Lr 20 Units/1,000 Ml) 20 unit in 1,000 mls @ 1,500 mls/hr IV TITRATE NANETTE; Protocol Last Admin: 08/05/19 19:20 Dose: 250 mls/hr Documented by: Sodium Chloride (Normal Saline) 250 mls @ 100 mls/hr IV ASDIRECTED NANETTE Sodium Chloride (Normal Saline) Confirm Administered Dose 1,000 mls @ as directed .ROUTE .STK-MED ONE Stop: 08/05/19 20:38 Last Admin: 08/05/19 20:45 Dose: 100 mls/hr Documented by: Sodium Chloride (Normal Saline) 1,000 mls @ 125 mls/hr IV ONETIME ONE Stop: 08/06/19 06:09 Last Admin: 08/06/19 00:04 Dose: Not Given Documented by: Methylergonovine Maleate (Methergine) 0.2 mg IM Q4H PRN PRN Reason: Bleeding Misoprostol (Cytotec) 600 mcg PO ONETIME ONE Stop: 08/05/19 18:01 Last Admin: 08/05/19 18:37 Dose: 600 mcg Documented by: Nalbuphine HCl (Nubain) 10 mg IVPUSH Q2H PRN PRN Reason: Pain Last Admin: 08/05/19 17:37 Dose: 10 mg Documented by: Sodium Chloride (Saline Flush) 10 ml FLUSH ASDIRECTED PRN PRN Reason: Keep Vein Open
== END 2019-08-06 17:05 | disposition home or self-care (01) | DRG 560 ==
LOC: JD.OB 06:51 → JD.OBCHECK 06:51 → JD.OB 23:51 → UNDOADMIN 23:51
PROVIDERS: ADMIT Obstetrics & Gynecology; ATTEND Obstetrics & Gynecology
PROC: 10E0XZZ Delivery of Products of Conception, External Approach (ICD-10-PCS; principal; 2019-08-05)
PROC: 3E0334Z Introduction of Serum, Toxoid and Vaccine into Peripheral Vein, Percutaneous Approach (ICD-10-PCS; 2019-08-05)
PROC: 30233N1 Transfusion of Nonautologous Red Blood Cells into Peripheral Vein, Percutaneous Approach (ICD-10-PCS; 2019-08-05)
PROC: 30233K1 Transfusion of Nonautologous Frozen Plasma into Peripheral Vein, Percutaneous Approach (ICD-10-PCS; 2019-08-05)
DX: O36.4XX0 Maternal care for intrauterine death, not applicable or unspecified (principal); O45.003 Premature separation of placenta with coagulation defect, unspecified, third trimester; O26.893 Other specified pregnancy related conditions, third trimester; O87.1 Deep phlebothrombosis in the puerperium; I82.409 Acute embolism and thrombosis of unspecified deep veins of unspecified lower extremity; Z3A.36 36 weeks gestation of pregnancy; Z37.1 Single stillbirth; Z37.0 Single live birth; Z67.11 Type A blood, Rh negative; Z11.59 Encounter for screening for other viral diseases
CPT/HCPCS: 36415; 36430; 51702; 59409; 76815; 76815-26; 80053; 80306; 81001; 82565; 82962; 83615; 84450; 84460; 84520; 84550; 85025; 85362; 85384; 85461; 85610; 85730; 86592; 86850; 86900; 86901; 86922; 87086; A9270-GY; J2300; J2405; J2590; J2790; J7030; J7050; J7120; P9012; P9016; P9017; P9034; U0002